=== PATIENT | male | born 1980 | race Caucasian/White ===

== ENCOUNTER 2020-09-20 13:51 | Outpatient (REF) | payer OTHER, SELFPAY | END 2020-09-20 13:52 | disposition home or self-care (01) | LOC: HO.LAB 13:51 | PROVIDERS: PCP Family Medicine; Visit Provider Internal Medicine | DX: Z20.828 Contact with and (suspected) exposure to other viral communicable diseases (principal) | CPT/HCPCS: 36415; C9803; U0003 ==

== ENCOUNTER 2023-11-20 08:41 | Outpatient (REF) | payer OTHER, SELFPAY ==
[2023-11-20 11:28] LABS: MANUAL DIFF FLAG NO
[2023-11-20 11:45] LABS: Basophils Percent Auto 0.7 % (0-2); Eosinophils Absolute Auto 0.3 X10*3/uL (0.0-0.4); Eosinophils Percent Auto 5.5 % (0-4); Hematocrit 49.3 % (42.0-52.0); Hemoglobin 16.6 g/dl (14.0-18.0); Imm Gran Abs Auto 0.05 X10*3/uL (0.00-0.03); Imm Gran Pct Auto 0.9 % (0.0-0.4); Lymphocytes Absolute Auto 1.6 X10*3/uL (1.2-4.9); Mean Corpuscular HGB Conc 33.7 g/dl (31.0-36.0); Mean Corpuscular Volume 83.1 fL (80.0-98.0); Mean Platelet Volume 10.8 fL (9.4-12.4); Monocytes Absolute Auto 0.3 X10*3/uL (0.1-1.2); Neutrophils Absolute Auto 3.1 x10*3/uL (2.0-8.3); Neutrophils Percent Auto 56.9 % (45-73); Platelet Count 220 X10*3/uL (160-400); Red Blood Count 5.93 X10*6/uL (4.60-5.80); Red Cell Distribution Width 12.4 % (11.0-16.0); White Blood Count 5.5 X10*3/uL (4.8-10.8)
[2023-11-20 12:17] LABS: ~HepC Num1 0.09 S/CO (0.00-0.79); ~Hepatitis C Antibody Nonreactive (Nonreactive)
[2023-11-20 12:21] LABS: Alanine Aminotransferase 16 U/L (0-40); Albumin Level 4.2 g/dL (3.5-5.0); Alkaline Phosphatase 91 U/L (39-117); Anion Gap 9 (12-20); Aspartate Amino Transferase 20 U/L (5-37); Bilirubin Total 1.1 mg/dL (0.0-1.0); Blood Urea Nitrogen 19 mg/dL (9-16); Calcium 9.4 mg/dL (8.4-10.2); Carbon Dioxide 30 mmol/L (22-29); Chloride 104 mmol/L (96-108); Cholesterol 161 mg/dL (<200); Estimated Glomerular Filt Rate > 60; Glucose Random 91 mg/dL (60-115); HDL Cholesterol 40 mg/dL (>40); LDL Cholesterol Calculated 106 mg/dL (<100); Potassium 4.1 mmol/L (3.3-5.1); Sodium 139 mmol/L (135-145); Total Protein 7.5 g/dL (6.5-8.0); Triglycerides 78 mg/dL (<150)
[2023-11-20 12:26] LABS: Syphilis Screen Nonreactive (Nonreactive)
[2023-11-20 13:33] LABS: Reflex LDLD? No
[2023-11-20 13:46] LABS: CT PCR NOT DETECTED (Not Detect.); NG PCR NOT DETECTED (Not Detect.)
[2023-11-21 11:58] LABS: Absolute CD3 Count 1318 cells/uL (840-3060); Absolute CD4 Count 737 cells/uL (490-1740); Absolute CD8 Count 547 cells/uL (180-1170); Absolute Lymphocytes 1871 cells/uL (850-3900); CD4 CD8 Ratio 1.35 (0.86-5.00); Percent CD3 Cells 70 % (57-85); Percent CD4 Cells 39 % (30-61); Percent CD8 Cells 29 % (12-42)
[2023-11-21 18:09] LABS: Rubella IgG Antibody 3.75 Index; Rubeola IgG (Measles) <13.50 AU/mL
[2023-11-22 15:19] LABS: HIV RNA PCR Qn Copies 383 copies/mL (NOT DETECTED); HIV RNA PCR Qn Log Copies 2.58 (NOT DETECTED)
[2023-11-23 07:43] LABS: TS Negative Control Passed; TS Panel A 0; TS Panel B 0; TS Positive Control Passed; TSpotTB Negative (Negative)
== END 2023-11-20 08:42 | disposition home or self-care (01) ==
LOC: HO.HHCL 08:41
PROVIDERS: Visit Provider Student in an Organized Health Care Education/Training Program
DX: B20 Human immunodeficiency virus [HIV] disease (principal)
CPT/HCPCS: 0353U; 36415; 80053; 80061; 85025; 86359; 86360; 86481; 86735; 86762; 86765; 86780; 86787; 86803; 87536

== ENCOUNTER 2023-12-05 13:53 | Outpatient (REF) | payer OTHER, SELFPAY ==
[2023-12-22 14:52] LABS: HPV MRNA E6/E7 Rectal NOT DETECTED
== END 2023-12-05 13:54 | disposition home or self-care (01) ==
LOC: HO.HHCLNP 13:53
PROVIDERS: Visit Provider Family Medicine
DX: B20 Human immunodeficiency virus [HIV] disease (principal); R85.610 Atypical squamous cells of undetermined significance on cytologic smear of anus (ASC-US)
CPT/HCPCS: 36415; 87624; 88112

== ENCOUNTER 2024-03-15 12:49 | Outpatient (REF) | payer OTHER, SELFPAY ==
[2024-03-15 14:06] LABS: Estimated Average Glucose 94 mg/dL; Hemoglobin A1c % 4.9 % (<6.0)
[2024-03-16 07:32] LABS: HBS Num1 101.57 mIU/mL (0-7.99); HBc Num1 0.06 S/CO (0.00-0.79); HBsAGNum1 0.27 S/CO (0.00-0.99); Hepatitis B Core Antibody Nonreactive (Nonreactive); Hepatitis B Surface Antigen Negative (Negative); ~Hepatitis B Surface Antibody REACTIVE (Nonreactive)
[2024-03-16 07:34] LABS: Hepatitis A Antibody IgG REACTIVE (Nonreactive); ~Hepatitis A Antibody IgG 11.36 S/CO (0.00-0.99)
[2024-03-17 14:53] LABS: HIV RNA PCR Qn Copies NOT DETECTED copies/mL (NOT DETECTED); HIV RNA PCR Qn Log Copies NOT DETECTED (NOT DETECTED)
== END 2024-03-15 12:50 | disposition home or self-care (01) ==
LOC: HO.HHCL 12:49
PROVIDERS: Visit Provider Student in an Organized Health Care Education/Training Program
DX: B20 Human immunodeficiency virus [HIV] disease (principal)
CPT/HCPCS: 36415; 83036; 86704; 86706; 86708; 87340; 87536

== ENCOUNTER 2024-07-29 10:40 | Outpatient (REF) | payer OTHER, SELFPAY ==
[2024-07-29 14:05] LABS: Alanine Aminotransferase 18 U/L (0-40); Albumin Level 4.1 g/dL (3.5-5.0); Alkaline Phosphatase 89 U/L (39-117); Anion Gap 8 (12-20); Aspartate Amino Transferase 23 U/L (5-37); Bilirubin Direct 0.3 mg/dL (0.0-0.5); Bilirubin Total 1.1 mg/dL (0.0-1.0); Blood Urea Nitrogen 18 mg/dL (9-16); Calcium 9.2 mg/dL (8.4-10.2); Carbon Dioxide 30 mmol/L (22-29); Chloride 104 mmol/L (96-108); Estimated Glomerular Filt Rate > 60; Potassium 3.5 mmol/L (3.3-5.1); Sodium 138 mmol/L (135-145); Total Protein 7.6 g/dL (6.5-8.0)
[2024-07-29 16:25] LABS: Glucose Random 58 mg/dL (60-115)
== END 2024-07-29 10:41 | disposition home or self-care (01) ==
LOC: HO.HHCL 10:40
PROVIDERS: Visit Provider Family Medicine
DX: Z21 Asymptomatic human immunodeficiency virus [HIV] infection status (principal)
CPT/HCPCS: 36415; 80048; 80076

== ENCOUNTER 2024-08-11 08:06 | Outpatient (REF) | payer OTHER, SELFPAY ==
[2024-08-13 13:57] LABS: HIV RNA PCR Qn Copies 26 copies/mL (NOT DETECTED); HIV RNA PCR Qn Log Copies 1.41 (NOT DETECTED)
[2024-08-15 00:54] LABS: Absolute CD4 Count 577 cells/uL (490-1740); Absolute CD8 Count 829 cells/uL (180-1170); Absolute Lymphocytes 2115 cells/uL (850-3900); Percent CD4 Cells 27 % (30-61); Percent CD8 Cells 39 % (12-42)
== END 2024-08-11 08:07 | disposition home or self-care (01) ==
LOC: HO.HHCL 08:06
PROVIDERS: Visit Provider Family Medicine
DX: B20 Human immunodeficiency virus [HIV] disease (principal)
CPT/HCPCS: 36415; 86360; 87536

== ENCOUNTER 2024-08-20 12:58 | Outpatient (REF) | payer OTHER, SELFPAY ==
[2024-08-25 04:09] LABS: C.Trachomatis RNA TMA, Rectal NOT DETECTED; N.Gonorrhoeae RNA TMA, Rectal NOT DETECTED
[2024-08-26 11:39] LABS: C. Trachomatis RNA TMA, Throat NOT DETECTED; N. gonorrhoeae RNA TMA, Throat NOT DETECTED
== END 2024-08-20 12:59 | disposition home or self-care (01) ==
LOC: HO.HHCLNP 12:58
PROVIDERS: Visit Provider Internal Medicine
DX: Z21 Asymptomatic human immunodeficiency virus [HIV] infection status (principal)
CPT/HCPCS: 87491; 87591

== ENCOUNTER 2024-12-16 14:17 | Outpatient (REF) | payer SELFPAY ==
--- NOTE | 2024-12-21 10:01 | MHC.AU.HA3 ---
Hearing Instrument Follow-Up- Binaural Date of Visit: 12/16/24 Right Ear: Make, Model, Color, Serial Number: Oticon Dynamo SP8 BTE SP, [id number] [employer] Forwarder Repair Warranty: Job Forwarder Loss and Damage Warranty: [facility] Service Plan: Battery Size: 13 Therapist Speech/Slim Tube: Earmold/Dome/CShell/SlimTip: Type of Wax Guard: Dispensed By: unknown Date of Fitting: Left Ear: Make, Model, Color, Serial Number: O[employer]on Dynamo SP8 BTE SP, [id number] [employer] Forwarder Repair Warranty: [employer] Forwarder Loss and Damage Warranty: [facility] Service Plan: Battery Size: Therapist Speech/Slim Tube: Earmold/Dome/CShell/SlimTip: Type of Wax Guard: Dispensed By: unknown Date of Fitting: Follow-Up Summary: Van visited to establish care with our office and repair nonworking hearing aids. Accompanied by website programmer Nan. He reports his hearing aids are at least 3-4 years old from somewhere in [place]. Has been happy overall but left earmold has been very uncomfortable for several months and right device is not working. Questions if needs new earmolds. Has not had hearing aids serviced in last few years. Also notes intermittent staticky sounds over last few months. Visual inspection shows very brittle and clogged tubes. Retubed both, ran aids through dehumidifier, cleaned earmolds. Listening check ok. Read settings into [place]. Patient reported improved sound quality and comfort. Showed him old tube versus new tube as he did not realize the impact an old tube can have on comfort and sound. Will try aids as they are before purchasing new earmolds as fit still looks good. Discussed returning for updated audiogram as we do not have one on file for him. OR today as establishing care appt, aware of $50 OV fee moving forward. Recommendations: Recommendations: Hearing instrument follow-up or maintenance as needed. Diagnosis Code(s): Primary Diagnosis: H90.3 Bilateral Sensorineural Hearing Loss Signature: Provider: Sosa Gusman, [facility]
== END 2024-12-16 14:18 | disposition home or self-care (01) ==
LOC: HO.HAP 14:17
PROVIDERS: Visit Provider Family Medicine
DX: Z13.89 Encounter for screening for other disorder (principal)

== ENCOUNTER 2025-01-14 11:50 | Outpatient (REF) | payer OTHER, SELFPAY ==
--- NOTE | ~2025-01-14 | XR_ITS ---
EXAMINATION: XR FOOT, RIGHT CLINICAL INFORMATION: Aute right heel pain. R/o stress fracture COMPARISON: None available. TECHNIQUE: AP, lateral, and oblique views of the right foot. FINDINGS: No acute cortical disruption or malalignment. No sclerosis. No blastic or lytic lesion. No metallic or radiopaque foreign body. No subcutaneous emphysema. XR/XR foot RT min 3V IMPRESSION: No acute fracture or dislocation. No obvious stress fracture. Electronically signed by: Omid Juarez MD 01/14/2025 12:19 PM EDT
== END 2025-01-14 11:51 | disposition home or self-care (01) ==
LOC: HO.HHCX 11:50
PROVIDERS: Visit Provider Registered Nurse
DX: M79.671 Pain in right foot (principal)
CPT/HCPCS: 73630

== ENCOUNTER → 2025-01-14 11:51 | Outpatient (BNV) | payer OTHER, SELFPAY | PROVIDERS: Visit Provider Radiology Diagnostic Radiology | DX: M79.671 Pain in right foot (principal) | CPT/HCPCS: 73630 ==

== ENCOUNTER 2025-02-04 07:59 | Outpatient (REF) | payer OTHER, SELFPAY ==
[2025-02-04 11:14] LABS: MANUAL DIFF FLAG NO
[2025-02-04 11:39] LABS: Basophils Percent Auto 0.3 % (0-2); Eosinophils Absolute Auto 0.2 X10*3/uL (0.0-0.4); Eosinophils Percent Auto 3.5 % (0-4); Hematocrit 49.8 % (42.0-52.0); Hemoglobin 16.9 g/dl (14.0-18.0); Imm Gran Abs Auto 0.02 X10*3/uL (0.00-0.03); Imm Gran Pct Auto 0.3 % (0.0-0.4); Lymphocytes Absolute Auto 1.9 X10*3/uL (1.2-4.9); Lymphocytes Percent Auto 31.2 % (20-40); Mean Corpuscular HGB Conc 33.9 g/dl (31.0-36.0); Mean Corpuscular Hemoglobin 27.6 pg (27.0-33.0); Mean Corpuscular Volume 81.4 fL (80.0-98.0); Mean Platelet Volume 10.2 fL (9.4-12.4); Monocytes Absolute Auto 0.3 X10*3/uL (0.1-1.2); Monocytes Percent Auto 5.1 % (2-11); Neutrophils Absolute Auto 3.6 x10*3/uL (2.0-8.3); Neutrophils Percent Auto 59.6 % (45-73); Platelet Count 262 X10*3/uL (160-400); Red Blood Count 6.12 X10*6/uL (4.60-5.80); Red Cell Distribution Width 12.3 % (11.0-16.0)
[2025-02-04 11:50] LABS: Estimated Average Glucose 94 mg/dL; Hemoglobin A1C 130.6198 umol/L; Hemoglobin A1c % 4.9 % (<6.0)
[2025-02-04 11:53] LABS: INTERNATIONAL NORM RATIO 1.1 (0.9-1.1); Prothrombin Time 12.6 SEC (10.9-12.4)
[2025-02-04 12:03] LABS: Syphilis Screen Nonreactive (Nonreactive)
[2025-02-04 12:05] LABS: HBsAGNum1 0.32 S/CO (0.00-0.99); Hepatitis B Surface Antigen Negative (Negative); ~Hepatitis C Antibody Nonreactive (Nonreactive)
[2025-02-04 12:09] LABS: Alanine Aminotransferase 22 U/L (0-40); Albumin Level 4.7 g/dL (3.5-5.0); Alkaline Phosphatase 105 U/L (39-117); Anion Gap 12 (12-20); Aspartate Amino Transferase 24 U/L (5-37); Bilirubin Direct 0.2 mg/dL (0.0-0.5); Bilirubin Total 0.9 mg/dL (0.0-1.0); Blood Urea Nitrogen 21 mg/dL (9-16); Calcium 9.5 mg/dL (8.4-10.2); Carbon Dioxide 28 mmol/L (22-29); Chloride 105 mmol/L (96-108); Cholesterol 203 mg/dL (<200); Estimated Glomerular Filt Rate > 60; Glucose Random 86 mg/dL (60-115); HDL Cholesterol 39 mg/dL (>40); LDL Cholesterol Calculated 135 mg/dL (<100); Potassium 4.1 mmol/L (3.3-5.1); Sodium 141 mmol/L (135-145); Total Protein 8.3 g/dL (6.5-8.0); Triglycerides 147 mg/dL (<150)
[2025-02-04 12:56] LABS: Reflex LDLD? No
[2025-02-05 14:49] LABS: HIV RNA PCR Qn Copies 76 copies/mL (NOT DETECTED); HIV RNA PCR Qn Log Copies 1.88 (NOT DETECTED)
[2025-02-07 01:39] LABS: TS Negative Control Passed; TS Panel A 0; TS Panel B 0; TS Positive Control Passed; TSpotTB Negative (Negative)
[2025-02-09 21:54] LABS: Absolute CD3 Count 1286 cells/uL (840-3060); Absolute CD4 Count 557 cells/uL (490-1740); Absolute CD8 Count 700 cells/uL (180-1170); Absolute Lymphocytes 1687 cells/uL (850-3900); Percent CD3 Cells 76 % (57-85); Percent CD4 Cells 33 % (30-61); Percent CD8 Cells 41 % (12-42)
[2025-02-11 14:24] LABS: FIB-ALT 15 U/L (9-46); FIB-Alpha-2-Macroglobulin 194 mg/dL (106-279); FIB-Apolipoprotein A1 148 mg/dL (94-176); FIB-GGT 21 U/L (3-95); FIB-Haptoglobin 82 mg/dL (43-212); FIB-Total Bilirubin 0.5 mg/dL (0.2-1.2); Liver Fibrosis Stage F0; Nec Inflam Act Grade A0; Nec Inflam Act Score 0.04
== END 2025-02-04 08:00 | disposition home or self-care (01) ==
LOC: HO.HHCL 07:59
PROVIDERS: Visit Provider Student in an Organized Health Care Education/Training Program
DX: Z21 Asymptomatic human immunodeficiency virus [HIV] infection status (principal)
CPT/HCPCS: 36415; 80053; 80061; 81596; 82248; 82550; 83036; 85025; 85610; 86359; 86360; 86481; 86780; 86803; 87340; 87536

== ENCOUNTER 2025-04-11 12:13 | Outpatient (REF) | payer OTHER, SELFPAY | END 2025-04-11 12:14 | disposition home or self-care (01) | LOC: HO.HHCLNP 12:13 | PROVIDERS: Visit Provider Student in an Organized Health Care Education/Training Program | DX: Z21 Asymptomatic human immunodeficiency virus [HIV] infection status (principal) | CPT/HCPCS: 88112 ==

== ENCOUNTER 2025-05-06 18:15 | Outpatient (REF) | payer OTHER, SELFPAY | END 2025-05-06 18:16 | disposition home or self-care (01) | LOC: HO.HHCLNP 18:15 | PROVIDERS: Visit Provider Student in an Organized Health Care Education/Training Program | DX: Z21 Asymptomatic human immunodeficiency virus [HIV] infection status (principal) | CPT/HCPCS: 88112 ==

== ENCOUNTER 2025-07-29 08:16 | Outpatient (REF) | payer OTHER, SELFPAY ==
[2025-07-29 11:25] LABS: MANUAL DIFF FLAG NO
[2025-07-29 11:42] LABS: Hematocrit 49.5 % (42.0-52.0); Hemoglobin 16.7 g/dl (14.0-18.0); Imm Gran Abs Auto 0.01 X10*3/uL (0.00-0.03); Imm Gran Pct Auto 0.1 % (0.0-0.4); Lymphocytes Absolute Auto 2.2 X10*3/uL (1.2-4.9); Mean Corpuscular HGB Conc 33.7 g/dl (31.0-36.0); Mean Corpuscular Hemoglobin 27.8 pg (27.0-33.0); Mean Corpuscular Volume 82.4 fL (80.0-98.0); NRBC Abs Auto 0.000 X10*3/uL (0.0-0.012); NRBC Pct Auto 0.0 /100WBC (0.0-0.2); Platelet Count 273 X10*3/uL (160-400); Red Blood Count 6.01 X10*6/uL (4.60-5.80); White Blood Count 6.7 X10*3/uL (4.8-10.8)
[2025-07-29 12:11] LABS: Alanine Aminotransferase 23 U/L (0-40); Albumin Level 4.7 g/dL (3.5-5.0); Alkaline Phosphatase 104 U/L (39-117); Anion Gap 11 (12-20); Aspartate Amino Transferase 30 U/L (5-37); Blood Urea Nitrogen 21 mg/dL (9-16); Calcium 9.5 mg/dL (8.4-10.2); Carbon Dioxide 29 mmol/L (22-29); Chloride 106 mmol/L (96-108); Cholesterol 173 mg/dL (<200); Estimated Glomerular Filt Rate > 60; HDL Cholesterol 42 mg/dL (>40); Potassium 4.7 mmol/L (3.3-5.1); Sodium 141 mmol/L (135-145); Total Protein 8.0 g/dL (6.5-8.0); Triglycerides 114 mg/dL (<150)
[2025-07-30 06:28] LABS: Rubeola IgG (Measles) >300.00 AU/mL
[2025-07-30 15:28] LABS: HIV RNA PCR Qn Copies 310 copies/mL (NOT DETECTED); HIV RNA PCR Qn Log Copies 2.49 (NOT DETECTED)
[2025-08-04 18:09] LABS: Absolute CD3 Count 1410 cells/uL (840-3060); Absolute CD8 Count 708 cells/uL (180-1170); Percent CD3 Cells 73 % (57-85); Percent CD8 Cells 37 % (12-42)
== END 2025-07-29 08:17 | disposition home or self-care (01) ==
LOC: HO.HHCL 08:16
PROVIDERS: Family Medicine; PCP Student in an Organized Health Care Education/Training Program; Visit Provider Student in an Organized Health Care Education/Training Program
DX: Z21 Asymptomatic human immunodeficiency virus [HIV] infection status (principal); Z01.84 Encounter for antibody response examination
CPT/HCPCS: 36415; 80053; 80061; 85025; 86359; 86360; 86735; 86762; 86765; 87536